=== PATIENT | male | born 1980 | race Hispanic/Latino ===

== ENCOUNTER 2017-09-03 21:53 | Inpatient (IN) | payer SELFPAY ==
[~2017-09-03] VITALS: Ht 167.6 cm; Wt 84.5 kg
[~2017-09-03 21:53] MED LIST: ETOMIDATE 2 MG/ML 10 ML VIAL IVP ONE; SUCCINYLCHOLINE CHLORIDE 20 MG/ML 10 ML VIAL IVP ONE
[2017-09-03] MEDS ORDERED: ONDANSETRON HCL 4 MG/2 ML VIAL ONE (22:44)
[2017-09-03] MEDS ORDERED: SODIUM CHLORIDE 0.9% 1000ML 1,000 ML IV ONE (22:44)
[2017-09-03] MEDS ORDERED: THIAMINE HCL 100 MG/ML 2ML VIAL ONE (22:44)
[2017-09-03 23:09] LABS: BASOPHILS % (AUTO) 2.1 % (0.0-5.0); EOSINOPHILS % (AUTO) 2.3 % (0.0-8.0); HEMATOCRIT 33.7 % (42-54); LYMPHOCYTES % (AUTO) 8.2 % (21.0-51.0); MEAN CORPUSCULAR HEMOGLOBIN 33.7 pg (27.0-33.0); MEAN CORPUSCULAR HGB CONC 35.6 g/dL (32.0-36.0); MEAN CORPUSCULAR VOLUME 94.5 fL (79-99); MONOCYTES % (AUTO) 5.2 % (3.0-13.0); NEUTROPHILS % (AUTO) 82.2 % (40.0-77.0); PLATELET COUNT (AUTO) 213 K/uL (130-400); RED BLOOD CELL COUNT(AUTO) 3.56 MIL/uL (4.50-6.20); RED CELL DISTRIBUTION WIDTH 12.9 % (11.0-15.5); WHITE BLOOD COUNT (AUTO) 7.6 K/uL (4.8-10.8)
[2017-09-03 23:24] LABS: CARBON DIOXIDE 25 mmol/L (21-32); CHLORIDE 112 mmol/L (101-111); CREATININE 0.8 mg/dL (0.5-1.5); GLOMERULAR FILTR. RATE CALC 116 mL/min (>60); GLUCOSE,RANDOM 70 mg/dL (70-105); SODIUM SERUM 145 mmol/L (136-145); UREA NITROGEN, BLOOD 8 mg/dL (7-18)
[2017-09-03 23:28] LABS: ALANINE AMINOTRANSFERASE 32 U/L (12-78); ALBUMIN 2.3 g/dL (3.5-5.0); ASPARTATE AMINOTRANSFERASE 20 U/L (10-37); BILIRUBIN,TOTAL 0.5 mg/dL (0.2-1.0); TOTAL PROTEIN, SERUM 4.9 g/dL (6.0-8.3)
[2017-09-03 23:44] LABS: ALCOHOL, BLOOD < 3 mg/dL (0-10)
[2017-09-03] MEDS ORDERED: LORAZEPAM 2 MG/ML 1 ML VIAL ONE (23:52)
[2017-09-04] VITALS (18 sets, daily range): BP systolic 110–154; BP diastolic 58–96
[2017-09-04 00:30] LABS: ABG BASE EXCESS -2.7 mmol/L (-2.0-3.0); ABG HCO3 25.3 mmol/L (21.0-28.0); ABG OXYGEN SATURATION 99.6 % (95.0-99.0); ABG PCO2 57 mmHg (35-48)
[2017-09-04 00:52] LABS: AMPHET/METH SCREEN,URINE NEGATIVE (NEGATIVE); BARBITURATE SCREEN, URINE NEGATIVE (NEGATIVE); BENZODIAZEPINES SCREEN,URINE POSITIVE (NEGATIVE); CANNABINOID SCREEN,URINE POSITIVE (NEGATIVE); COCAINE SCREEN,URINE POSITIVE (NEGATIVE); OPIATE SCREEN,URINE NEGATIVE (NEGATIVE); PHENCYCLIDINE SCREEN,URINE NEGATIVE (NEGATIVE)
[2017-09-04] MEDS ORDERED: AMMONIA 1 EA AMP IH ONE (01:05)
[2017-09-04] MEDS ORDERED: PROPOFOL 1000 MG/100 ML 100 ML IV ONE ×2 (01:15→23:10)
[2017-09-04 01:18] LABS: BILIRUBIN,URINE Negative (NEGATIVE); GLUCOSE, URINE (UA) Negative (NEGATIVE); KETONES,URINE Negative (NEGATIVE); LEUKOCYTE ESTERASE ,URINE Small (NEGATIVE); NITRATE,URINE Negative (NEGATIVE); OCCULT BLOOD,URINE Negative (NEGATIVE); PROTEIN,URINE Negative (NEGATIVE)
[2017-09-04 01:21] LABS: COLOR,URINE YELLOW (YELLOW)
[2017-09-04 01:22] LABS: APPEARANCE,URINE CLEAR (CLEAR)
[2017-09-04 01:33] LABS: BACTERIA,URINE Few /HPF (None Seen); RBC,URINE 0-1 /HPF (0-1)
[2017-09-04 01:43] LABS: CREATINE KINASE, TOTAL 121 U/L (21-232)
[2017-09-04 01:49] LABS: SALICYLATE < 2.8 mg/dL (2.8-20.0)
[2017-09-04 01:50] LABS: ACETAMINOPHEN < 1 mcg/mL (10-29)
[2017-09-04] MEDS ORDERED: SODIUM CHLORIDE 0.9% 1000ML 1,000 ML IV SCH (02:15)
[2017-09-04] MEDS ORDERED: LIDOCAINE HCL-MPF 1% 2ML VIAL IVP PRN (02:30)
[2017-09-04] MEDS ORDERED: HYDRALAZINE HCL 20 MG/ML VIAL IV PRN ×2 (02:30→09:13)
[2017-09-04] MEDS ORDERED: POTASSIUM CHLORIDE 20MEQ/100ML 100 ML IV PRN (02:30)
[2017-09-04] MEDS ORDERED: ONDANSETRON HCL MDV 20ML 2 MG/ML VIAL IVP PRN ×2 (02:30→09:09)
[2017-09-04] MEDS ORDERED: POTASSIUM CHLORIDE 10% ELIXIR 20 MEQ/15 ML UDCUP PO PRN (02:30)
[2017-09-04] MEDS ORDERED: LORAZEPAM 2 MG/ML 1 ML VIAL IVP PRN (02:30)
[2017-09-04] MEDS ORDERED: POTASSIUM CHLORIDE 20 MEQ ERTAB PO PRN (02:30)
[2017-09-04 02:51] LABS: ABG BASE EXCESS -0.5 mmol/L (-2.0-3.0); ABG HCO3 25.3 mmol/L (21.0-28.0); ABG OXYGEN SATURATION 94.2 % (95.0-99.0); ABG PCO2 46 mmHg (35-48)
[2017-09-04] MEDS ORDERED: POTASSIUM CHLORIDE 20MEQ/100ML 100 ML IV ONE (05:00)
[2017-09-04] MEDS ORDERED: POTASSIUM CHLORIDE 10% ELIXIR 20 MEQ/15 ML UDCUP ONE (05:00)
[2017-09-04] MEDS ORDERED: DEXTROSE 5%-WATER 1,000 ML IV ONE (05:37)
[2017-09-04] MEDS ORDERED: THIAMINE HCL 100 MG/ML 2ML VIAL ONE (05:56)
[2017-09-04] MEDS ORDERED: M.V.I. IV [ADULT] 10 ML VIAL IV ONE (05:57)
[2017-09-04] MEDS ORDERED: FOLIC ACID 5 MG/ML 10 ML VIAL ONE (06:30)
[2017-09-04] MEDS ORDERED: POTASSIUM BICARB/CIT AC 25 MEQ TABLET.EFF ONE (07:24)
[2017-09-04] MEDS ORDERED: FAMOTIDINE/PF 20 MG/2 ML VIAL IV SCH (09:00)
[2017-09-04] MEDS: ENOXAPARIN SODIUM 40 MG/0.4 ML SYRINGE SQ SCH (09:00)
[2017-09-04] MEDS ORDERED: ACETAMINOPHEN 325 MG TAB PO PRN (09:15)
[2017-09-04] MEDS ORDERED: PANTOPRAZOLE SODIUM 40 MG TABLET.DR PO SCH (09:15)
[2017-09-04 09:17] LABS: HEMATOCRIT 39.6 % (42-54); MEAN CORPUSCULAR HEMOGLOBIN 32.7 pg (27.0-33.0); MEAN CORPUSCULAR HGB CONC 34.8 g/dL (32.0-36.0); PLATELET COUNT (AUTO) 225 K/uL (130-400); RED BLOOD CELL COUNT(AUTO) 4.22 MIL/uL (4.50-6.20); RED CELL DISTRIBUTION WIDTH 12.8 % (11.0-15.5)
[2017-09-04 09:33] LABS: ALBUMIN 2.9 g/dL (3.5-5.0); BILIRUBIN,TOTAL 1.2 mg/dL (0.2-1.0); PHOSPHORUS 1.9 mg/dL (2.5-4.9); POTASSIUM 3.9 mmol/L (3.5-5.1); TOTAL PROTEIN, SERUM 6.4 g/dL (6.0-8.3)
[2017-09-04 10:07] LABS: BAND NEUTROPHILS % (MANUAL) 1 % (0-2); LYMPHOCYTES % (MANUAL) 7 % (22-44); MONOCYTES % (MANUAL) 2 % (2-9); REACTIVE LYMPHOCYTES 8 % (0-0); SEGMENTED NEUTROPHILS % 82 % (40-70)
[2017-09-04 10:08] LABS: MAN.DIFF COMMENT-IMPRESSION MANUAL DIFFERENTIAL; PLATELET MORPHOLOGY COMMENT ADEQUATE
[2017-09-04] MEDS: D5W-1/2 NS/20MEQ KCL 1,000 ML IV SCH ×2 (10:36→20:10)
[2017-09-04] MEDS: FENTANYL 2500MCG+NS 250ML 250 ML IV PRN (11:04)
[2017-09-04] MEDS: MIDAZOLAM 100MG-0.9% NS 100ML 100 ML IV PRN ×2 (11:05→21:08)
[2017-09-04] MEDS ORDERED: DIAZEPAM 5 MG TABLET PO PRN (14:30)
[2017-09-04] MEDS: FAMOTIDINE/PF 20 MG/2 ML VIAL IV SCH (21:08)
[2017-09-04] MEDS ORDERED: PROPOFOL 1000 MG/100 ML IV PRN (23:15)
[2017-09-04] MEDS ORDERED: QUETIAPINE FUMARATE 25 MG TAB ONE (23:28)
[2017-09-04] MEDS: QUETIAPINE FUMARATE 25 MG TAB NG SCH (23:30)
[2017-09-05] VITALS (26 sets, daily range): BP systolic 88–158; BP diastolic 35–93
[2017-09-05] MEDS: FENTANYL 2500MCG+NS 250ML 250 ML IV PRN (01:12)
[2017-09-05 04:12] LABS: HEMATOCRIT 36.2 % (42-54); MEAN CORPUSCULAR HEMOGLOBIN 34.5 pg (27.0-33.0); MEAN CORPUSCULAR HGB CONC 36.4 g/dL (32.0-36.0); MEAN CORPUSCULAR VOLUME 94.7 fL (79-99); PLATELET COUNT (AUTO) 213 K/uL (130-400); RED BLOOD CELL COUNT(AUTO) 3.82 MIL/uL (4.50-6.20); RED CELL DISTRIBUTION WIDTH 12.8 % (11.0-15.5); WHITE BLOOD COUNT (AUTO) 9.2 K/uL (4.8-10.8)
[2017-09-05 04:28] LABS: BAND NEUTROPHILS % (MANUAL) 7 % (0-2); EOSINOPHILS % (MANUAL) 1 % (1-6); LYMPHOCYTES % (MANUAL) 21 % (22-44); MAN.DIFF COMMENT-IMPRESSION MANUAL DIFFERENTIAL; MONOCYTES % (MANUAL) 9 % (2-9); PLATELET MORPHOLOGY COMMENT ADEQUATE; REACTIVE LYMPHOCYTES 2 % (0-0); SEGMENTED NEUTROPHILS % 60 % (40-70)
[2017-09-05 04:45] LABS: CREATININE 1.1 mg/dL (0.5-1.5); POTASSIUM 3.9 mmol/L (3.5-5.1)
[2017-09-05 08:06] LABS: MAGNESIUM 1.9 mg/dL (1.80-2.40); PHOSPHORUS 2.3 mg/dL (2.5-4.9)
[2017-09-05 08:12] LABS: INR 0.98 (0.85-1.15); PARTIAL THROMBOPLASTIN TIME 24.9 SEC (26.3-35.5); PROTHROMBIN TIME 10.3 SEC (9.6-11.6)
[2017-09-05] MEDS ORDERED: MULTIVITAMIN TABLET NG SCH (09:00)
[2017-09-05] MEDS: THIAMINE HCL 100 MG TABLET NG SCH (09:31)
[2017-09-05] MEDS: QUETIAPINE FUMARATE 25 MG TAB NG SCH ×2 (09:31→21:29)
[2017-09-05] MEDS: FAMOTIDINE/PF 20 MG/2 ML VIAL IV SCH ×2 (09:31→21:29)
[2017-09-05] MEDS: FOLIC ACID 1 MG TABLET NG SCH (09:31)
[2017-09-05] MEDS: D5W-1/2 NS/20MEQ KCL 1,000 ML IV SCH ×2 (11:01→21:31)
[2017-09-05] MEDS ORDERED: SODIUM CHLORIDE 0.9% 500ML 500 ML IV ONE (11:31)
[2017-09-05] MEDS: ENOXAPARIN SODIUM 40 MG/0.4 ML SYRINGE SQ SCH (13:46)
[2017-09-05] MEDS ORDERED: MULTIVITS W-MIN/FERROUS GLUC 237 ML BOTTLE PO SCH (14:00)
[2017-09-05] MEDS ORDERED: ARTIFICAL TEARS SOL 15 ML OU PRN (14:00)
[2017-09-05] MEDS ORDERED: ACETAMINOPHEN ELIXIR 650 MG/20.3 ML UDCUP ONE (15:59)
[2017-09-05] MEDS ORDERED: ACETAMINOPHEN ELIXIR 650 MG/20.3 ML UDCUP PEG PRN (16:15)
[2017-09-05 17:39] LABS: ABG BASE EXCESS -2.1 mmol/L (-2.0-3.0); ABG HCO3 21.7 mmol/L (21.0-28.0); ABG OXYGEN SATURATION 98.1 % (95.0-99.0); ABG PCO2 35 mmHg (35-48)
[2017-09-05] MEDS ORDERED: LEVOFLOXACIN 750 MG/D5W 150 ML 150 ML IV SCH (18:00)
[2017-09-05] MEDS ORDERED: VANCOMYCIN PROTOCOL PER PHARMACY IV SCH (18:00)
[2017-09-05] MEDS ORDERED: CEFEPIME 2GM+NS 100ML 100 ML IV SCH (18:00)
[2017-09-05] MEDS ORDERED: COMPOUND IV REFRIGERATED 1 EACH IVSOLN MISC PRN (18:15)
[2017-09-05] MEDS: CEFEPIME HCL 2 GM VIAL IVP SCH (18:37)
[2017-09-05] MEDS: VANCOMYCIN 1.25 GM in SODIUM CHLORIDE 0.9% 250 ML IV SCH (21:14)
[2017-09-06] VITALS (13 sets, daily range): BP systolic 115–152; BP diastolic 47–88
[2017-09-06] MEDS: D5W-1/2 NS/20MEQ KCL 1,000 ML IV SCH ×2 (01:15→11:15)
[2017-09-06] MEDS: CEFEPIME HCL 2 GM VIAL IVP SCH ×2 (03:17→10:25)
[2017-09-06 04:06] LABS: POTASSIUM 4.6 mmol/L (3.5-5.1)
[2017-09-06] MEDS ORDERED: MULTIVITAMIN TABLET ONE (10:15)
[2017-09-06] MEDS ORDERED: FAMOTIDINE 20MG TAB 20 MG TAB ONE (10:16)
[2017-09-06] MEDS: ENOXAPARIN SODIUM 40 MG/0.4 ML SYRINGE SQ SCH (10:25)
[2017-09-06] MEDS: THIAMINE HCL 100 MG TABLET NG SCH (10:25)
[2017-09-06] MEDS: QUETIAPINE FUMARATE 25 MG TAB NG SCH (10:26)
[2017-09-06] MEDS: FOLIC ACID 1 MG TABLET NG SCH (10:26)
[2017-09-06] MEDS: VANCOMYCIN 1.25 GM in SODIUM CHLORIDE 0.9% 250 ML IV SCH (10:27)
[2017-09-06] MEDS ORDERED: LISI2.5T2 PO (15:07)
[2017-09-06] MEDS ORDERED: LEVO500T2 PO (15:07)
[2017-09-06] MEDS ORDERED: FAMOTIDINE 20MG TAB 20 MG TAB PO SCH (21:00)
[2017-09-07] MEDS ORDERED: MULTIVITAMIN TABLET PO SCH (09:00)
== END 2017-09-06 16:40 | disposition home or self-care (01) | DRG 917 ==
LOC: EDH 21:53 → EDHIP 21:54 → 2CH 09-04 07:43
PROVIDERS: ADMIT Family Medicine; ATTEND Family Medicine
PROC: 0BH17EZ Insertion of Endotracheal Airway into Trachea, Via Natural or Artificial Opening (ICD-10-PCS; principal; 2017-09-04)
PROC: 5A1945Z Respiratory Ventilation, 24-96 Consecutive Hours (ICD-10-PCS; 2017-09-04)
PROC: 5A09357 Assistance with Respiratory Ventilation, Less than 24 Consecutive Hours, Continuous Positive Airway Pressure (ICD-10-PCS; 2017-09-05)
DX: T40.7X4A Poisoning by cannabis (derivatives), undetermined, initial encounter (principal); J96.01 Acute respiratory failure with hypoxia; G92 Toxic encephalopathy; N39.0 Urinary tract infection, site not specified; D64.9 Anemia, unspecified; E83.42 Hypomagnesemia; E87.6 Hypokalemia; F17.210 Nicotine dependence, cigarettes, uncomplicated; I10 Essential (primary) hypertension; F12.90 Cannabis use, unspecified, uncomplicated; I73.9 Peripheral vascular disease, unspecified; F14.90 Cocaine use, unspecified, uncomplicated; T42.4X4A Poisoning by benzodiazepines, undetermined, initial encounter; T40.5X4A Poisoning by cocaine, undetermined, initial encounter; T51.94XA Toxic effect of unspecified alcohol, undetermined, initial encounter; Y92.89 Other specified places as the place of occurrence of the external cause; Z28.21 Immunization not carried out because of patient refusal
CPT/HCPCS: 31500; 36415; 36600; 70450; 71045; 80048; 80053; 80305; 81001; 82140; 82550; 82803; 83735; 84100; 84484; 85025; 85610; 85730; 87040; 87071; 87088; 87205; 93005; 93926; 94002; 94003; 94150; A4218; G0480; G0481; J0330; J0692; J1650; J1956; J2060; J2405; J2704; J3010; J3370; J3411; J3480; J3490; J7030; J7040; J7070